=== PATIENT | male | born 1970 | race Caucasian/White ===

== ENCOUNTER → 2020-02-19 16:26 | Outpatient (CLI) | payer OTHER, SELFPAY ==
--- NOTE | ~2020-02-19 | XR_ITS ---
EXAMINATION: XR thoracic spine 3V DATE: 02/19/2020 16:48 INDICATION: Thoracic spine pain. TECHNIQUE: 3 views of thoracic spine on 5 radiographs were obtained. COMPARISON: Chest 2 views 02/19/2015 FINDINGS: Bone alignment is normal. There are changes of anterior fusion procedure at C5-C6. Interver tebral disc heights are normal in thoracic spine. IMPRESSION: 1. Normal thoracic spine. Reviewed, dictated and finalized at location A. TER PACK OPERATOR IMPRESSION: 1. Normal thoracic spine.
== END ==
PROVIDERS: PCP Family Medicine; Referring Provider Family Medicine; Visit Provider Family Medicine
DX: M54.6 Pain in thoracic spine (principal); Z98.1 Arthrodesis status
CPT/HCPCS: 72072

== ENCOUNTER 2020-07-08 10:32 | Outpatient (CLI) | payer OTHER, SELFPAY ==
--- NOTE | ~2020-07-08 | US_ITS ---
EXAMINATION: US carotid duplex BI DATE: 07/08/2020 11:06 INDICATION: Lightheadedness. TECHNIQUE: Grayscale, color Doppler, and pulsed Doppler images of the cervical carotid arteries were obtained. The degree of vessel stenosis is placed in one of the following categories: normal, <50%, 5 0-69%, >=70% but less than near-occlusion, near-occlusion, or total occlusion. Note that percent sten osis relative to normal distal artery lumen diameter is indirectly measured from velocity measurement s as described by Lamin, et al. Radiology 2003; [id number]:[id number]. COMPARISON: None. FINDINGS: RIGHT: The right common carotid artery (CCA) peak systolic velocity (PSV) is 136 cm/s. The right internal ca rotid artery (ICA) PSV is 87 cm/s. The right ICA end-diastolic velocity (EDV) is 21 cm/s. The right I CA/CCA PSV ratio is 0.6. Grayscale and color Doppler images yield an estimate of <50% diameter reduct ion from plaque in the ICA. The external carotid artery (ECA) PSV is 98 cm/s. There is antegrade flow in the right vertebral artery. LEFT: The left CCA PSV is 170 cm/s. The left ICA PSV is 69 cm/s. The left ICA EDV is 24 cm/s. The left ICA/ CCA PSV ratio is 0.4. Grayscale and color Doppler images yield an estimate of <50% diameter reduction from plaque in the ICA. The ECA PSV is 140 cm/s. There is antegrade flow in the left vertebral arter y. Incidentally noted is a 2.9 cm wider than tall solid hypoechoic nodules with smooth margins and wi thout echogenic foci in the left thyroid lobe. (TI-RADS 4, moderately suspicious , FNA if >=1.5 cm, a nnual followup is >=1 cm). IMPRESSION: 1. <50% stenosis in the right internal carotid artery. 2. <50% stenosis in the left internal carotid artery. 3. 2.9 cm TI RADS 4 left thyroid nodule for which ultrasound guided biopsy would be indicated. Recomm end dedicated thyroid ultrasound for more complex evaluation of the thyroid and biopsy of at least th e currently imaged nodule. Reviewed, dictated and finalized at location A. IMPRESSION: 1. <50% stenosis in the right internal carotid artery. 2. <50% stenosis in the left internal carotid artery. 3. 2.9 cm TI RADS 4 left thyroid nodule for which ultrasound guided biopsy woul d be indicated. Recommend dedicated thyroid ultrasound for more complex evaluat ion of the thyroid and biopsy of at least the currently imaged nodule.
== END 2020-07-08 10:33 | disposition home or self-care (01) ==
LOC: ANHIMG 10:38
PROVIDERS: PCP Family Medicine; Visit Provider Family Medicine
DX: R42 Dizziness and giddiness (principal); I65.23 Occlusion and stenosis of bilateral carotid arteries
CPT/HCPCS: 93880

== ENCOUNTER 2020-07-10 06:41 | Outpatient (CLI) | payer OTHER, SELFPAY ==
--- NOTE | 2020-07-10 06:57 | EST_ITS ---
Patient Info Name: Kenneth Gallegos Age: 50 years : 1970 Gender: Male Ht: 70 in Wt: 245 lbs BSA: 2.38 m2 HR: 92 bpm BP: 121 / 85 mmHg Heart Rhythm: Sinus Rhythm Exam Date: 07/10/2020 8:11 AM Exam Location: [facility] Stress Patient Status: Outpatient Admit Date: 07/10/2020 Staff Ordering Physician: Austin Zarco MD Attending Provider: FERMIN PERERA Exercise Technologist: Cole Whatley RDCS, RT Exercise Physician: Fermin Perera DO Exam Type: CA stress test treadmill Study Info Indications R06.00 - Dyspnea, unspecified A treadmill exercise stress test was performed. Summary 1. 1. Negative Frederic exercise stress test for ischemic ST changes by ECG criteria. 2. 2. Good functional capacity, achieving 10 METs of workload. 3. 3. Appropriate HR response to exercise. 4. 4. Appropriate HR recovery at 1 minute post exercise. 5. 5. Hypertensive response to exercise. 6. 6. No imaging with stress testing. 7. 7. Patient informed of the above results. Protocol: Frederic Stress ECG Details Stage: REST Duration (min): 0 min : 44 sec Speed (mph): 0.0 Grade (%): 0 HR (bpm): 93 SBP (mmHg): 121 DBP (mmHg): 85 METS: --- Stage: REST Duration (min): 6 min : 7 sec Speed (mph): 0.0 Grade (%): 0 HR (bpm): 99 SBP (mmHg): 121 DBP (mmHg): 85 METS: --- Stage: STAGE 1 Duration (min): 1 min : 0 sec Speed (mph): 1.7 Grade (%): 10 HR (bpm): 112 SBP (mmHg): 121 DBP (mmHg): 85 METS: --- Stage: STAGE 1 Duration (min): 2 min : 0 sec Speed (mph): 1.7 Grade (%): 10 HR (bpm): 117 SBP (mmHg): 121 DBP (mmHg): 85 METS: --- Stage: STAGE 1 Duration (min): 3 min : 0 sec Speed (mph): 1.7 Grade (%): 10 HR (bpm): 119 SBP (mmHg): 155 DBP (mmHg): 69 METS: --- Stage: STAGE 2 Duration (min): 1 min : 0 sec Speed (mph): 2.5 Grade (%): 12 HR (bpm): 126 SBP (mmHg): 155 DBP (mmHg): 69 METS: --- Stage: STAGE 2 Duration (min): 2 min : 0 sec Speed (mph): 2.5 Grade (%): 12 HR (bpm): 135 SBP (mmHg): 163 DBP (mmHg): 68 METS: --- Stage: STAGE 2 Duration (min): 3 min : 0 sec Speed (mph): 2.5 Grade (%): 12 HR (bpm): 137 SBP (mmHg): 163 DBP (mmHg): 68 METS: --- Stage: STAGE 3 Duration (min): 1 min : 0 sec Speed (mph): 3.4 Grade (%): 14 HR (bpm): 148 SBP (mmHg): 198 DBP (mmHg): 81 METS: --- Stage: STAGE 3 Duration (min): 2 min : 0 sec Speed (mph): 3.4 Grade (%): 14 HR (bpm): 153 SBP (mmHg): 198 DBP (mmHg): 81 METS: --- Stage: STAGE 3 Duration (min): 2 min : 22 sec Speed (mph): 3.4 Grade (%): 14 HR (bpm): 156 SBP (mmHg): 198 DBP (mmHg): 81 METS: --- Stage: RECOVERY Duration (min): 0 min : 37 sec Speed (mph): 0.0 Grade (%): 0 HR (bpm): 145 SBP (mmHg): 210 DBP (mmHg): 79
--- NOTE | 2020-07-10 06:57 | ECHO_ITS ---
Patient Info Name: Kenneth Gallegos Age: 50 years : 1970 Gender: Male Ht: 70 in Wt: 245 lbs BSA: 2.38 m2 HR: 79 bpm BP: 124 / 90 mmHg Technical Quality: Good Exam Date: 07/10/2020 7:16 AM Exam Location: [facility] Pulmonary Patient Status: Outpatient Admit Date: 07/10/2020 Staff Ordering Physician: Austin Zarco MD Wheel Worker: Cole Whatley, RADHA, RT Attending Provider: Austin Zarco MD Referring Physician: Carolee ESCALONA; Exam Type: CA echo doppler color flow Study Info Indications R06.00 - Dyspnea, unspecified Complete two-dimensional, color flow and Doppler transthoracic echocardiogram is performed. Strain analysis performed. Summary 1. Complete two-dimensional, color flow and Doppler transthoracic echocardiogram is performed. 2. Left ventricular chamber dimension is normal. 3. Left ventricular systolic function is normal, estimated at 60-65%. 4. There is mildly increased left ventricular wall thickness. 5. The left ventricular diastolic function is normal. 6. E/e' 7 is not elevated. 7. Global longitudinal strain is abnormal at -14.3%. 8. Right ventricular systolic function is mildly reduced and with mildly abnormal TAPSE 1.6 cm. 9. Right ventricular chamber dimension is mildly enlarged. Left Ventricle E/e' 7 is not elevated. Global longitudinal strain is abnormal at -14.3%. Left ventricular chamber dimension is normal. Left ventricular systolic function is normal, estimated at 60-65%. There is mildly increased left ventricular wall thickness. The left ventricular diastolic function is normal. Right Ventricle Right ventricular systolic function is mildly reduced and with mildly abnormal TAPSE 1.6 cm. Right ventricular chamber dimension is mildly enlarged. Left Atria Left atrial chamber dimension is normal. Right Atria Right atrial chamber dimension is normal. Aortic Valve The aortic valve is trileaflet. There is no aortic valve stenosis. There is no aortic valve regurgitation. Pulmonic Valve There is no pulmonic regurgitation. Mitral Valve There is no mitral valve stenosis. There is no mitral valve regurgitation. Tricuspid Valve There is no tricuspid valve regurgitation. Pericardium/Pleural There is no pericardial effusion. Inferior Vena Cava Normal inferior vena cava with >50% collapse upon inspiration consistent with normal right atrial pressure, 5 mmHg. Aorta The aortic root size at the sinus of Valsalva is normal. Left Ventricular Outflow Tract Name Value Normal LVOT 2D LVOT Diameter 2.3 cm LVOT Doppler LVOT Peak Gradient 3 mmHg LVOT Mean Gradient 2 mmHg LVOT VTI 15 cm LVOT VTI/AV VTI Ratio 0.9 LVOT Stroke Volume 64 ml LVOT CO 5.5 l/min LVOT CI 2.3 l/min/m2 Mitral Valve Name Value Normal ---------
== END 2020-07-10 06:42 | disposition home or self-care (01) ==
PROVIDERS: PCP Family Medicine; Visit Provider Family Medicine
DX: R53.83 Other fatigue (principal); R42 Dizziness and giddiness; R93.1 Abnormal findings on diagnostic imaging of heart and coronary circulation; I51.7 Cardiomegaly
CPT/HCPCS: 93017; 93306

== ENCOUNTER 2020-08-07 12:18 | Outpatient (CLI) | payer OTHER, SELFPAY ==
--- NOTE | ~2020-08-07 | US_ITS ---
EXAMINATION: US thyroid DATE: 08/07/2020 13:06 INDICATION: Nontoxic single thyroid nodule. TECHNIQUE: Multiple ultrasound images of the thyroid were obtained. COMPARISON: None. FINDINGS: The right thyroid lobe measures 5.1 x 2.0 x 1.6 cm. The left thyroid lobe measures 5.2 x 2.6 x 2.5 c m. In the left thyroid lobe, there is a 3.0 cm solid, very hypoechoic, [id number]-oywf-wqow nodule with s mooth margin without echogenic foci (TI-RADS TR4). IMPRESSION: 1. Left thyroid nodule. Ultrasound-guided fine-needle aspiration is recommended and was performed toprice ay. Reviewed, dictated and finalized at location A. IMPRESSION: 1. Left thyroid nodule. Ultrasound-guided fine-needle aspiration is recommended and was performed today.
--- NOTE | ~2020-08-07 | US_ITS ---
EXAMINATION: US FNA w image guidance DATE: 08/07/2020 13:06 INDICATION: Nontoxic single thyroid nodule. TECHNIQUE: The procedure and its benefits and risks were discussed with the patient. Risks specifically discusse d included bleeding. The patient verbalized understanding of the risks and agreed to proceed. The nec k was prepped and draped in the usual sterile manner. 1% lidocaine was used for local anesthesia. 5 passes were made with a 25G needle into the lesion under ultrasound guidance. There were no immedia te complications. The patient understood to call the ordering physician for results after a week and a half and verbalized that understanding. FINDINGS: Grayscale ultrasound images demonstrate needles advanced into a 3.0 cm nodule in left thyroid lobe fo r biopsy. IMPRESSION: 1. Ultrasound-guided fine needle aspiration of a left thyroid nodule. Reviewed, dictated and finalized at location A.
== END 2020-08-07 12:19 | disposition home or self-care (01) ==
PROVIDERS: PCP Family Medicine; Visit Provider Family Medicine
DX: E04.1 Nontoxic single thyroid nodule (principal)
CPT/HCPCS: 10005; 76536; 88173; 88305

== ENCOUNTER 2021-08-14 07:32 | Outpatient (CLI) | payer OTHER, SELFPAY ==
--- NOTE | 2021-09-15 19:26 | WPDHOMESLEEP ---
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 The patient has been working the swing shift for the past 30 years. He occasionally awakens from sleep short of breath. He constantly awakens at night with heartburn, belching or cough. He occasionally snores loud enough that others complain. He frequently has trouble sleeping when he has a cold. He occasionally wakes up gasping for air throughout the night. He occasionally has breathing problems at night observed by himself or others. He rarely sweats excessively at night. He occasionally has heart palpitations or irregular heartbeats during the night. He constantly falls asleep during the day and occasionally falls asleep while driving. He denies cataplexy. He constantly has trouble at school or work due to sleepiness. He occasionally feels unable to move while waking up or falling asleep. He occasionally experiences vivid dreamlike scenes upon awakening or falling asleep. He rarely has nightmares. He occasionally remembers his dreams. He frequently has thoughts racing through his mind. He denies feeling sad or depressed. He frequently has anxiety. He rarely has muscular tension. He occasionally notices parts of his body jerk. He occasionally kicks during the night. He frequently has crawling and aching feelings in his legs and frequently has leg pain during the night. He occasionally grinds his teeth during sleep but never awakens with morning jaw pain. He is constantly bothered by pain during the day and frequently awakened by pain during the night. He constantly wakes up feeling stiff in the morning. He frequently wakes up with sore or achy muscles. He frequently wakes up with pain in the neck, spine or joints. He does not have a set bedtime or wake up time due to his jaw [place]. He typically wakes up 3-4 times throughout the night for unknown reasons. He typically gets 3 hours of sleep per night. Will stay in bed for 30 minutes after waking up in the morning. He currently lives with his girlfriend. He does not consume any caffeinated beverages within 2 hours of bedtime. He does not engage in physical exercise before bedtime. He will watch television before falling asleep. He will take naps in the afternoon or the evening and they are refreshing. He drinks 3 caffeinated beverages per day. He drinks 15 beers per week. He denies tobacco and recreational drug use. [facility] Past Medical History Medical History Abnormal serum iron level Acute bronchitis BMI 36.0-36.9,adult Chronic thoracic back pain Controlled type 2 diabetes mellitus without complication, without long-term current use of insulin COVID-19 (03/11/20) Episodic lightheadedness Essential (primary) hypertension (06/11/20) Fatigue Fatty liver Gastro-esophageal reflux disease without esophagitis Hypersomnia Mixed hyperlipidemia Positive AMADOU (antinuclear antibody) Renal stone Thyroid nodule greater than or equal to 1.5 cm in diameter incidentally noted on imaging study (07/08/20) 2.9 cm left thyroid nodule on carotid Doppler study 07/08/2020 Family History Family History Mother Patient's mother is , Onset Age: 61 Family history of malignant neoplasm Father Patient's father is , Onset Age: 63 Acute myocardial infarction Social History Social History Smoking status: Never smoker Alcohol intak
[2021-09-15 19:36] VITALS: BMI 36.1
== END 2021-09-15 11:22 | disposition home or self-care (01) ==
LOC: ANHCSM 07:33
PROVIDERS: PCP Family Medicine; Visit Provider Family Medicine
DX: G47.10 Hypersomnia, unspecified (principal); G47.33 Obstructive sleep apnea (adult) (pediatric)
CPT/HCPCS: 95800

== ENCOUNTER 2022-12-15 02:09 | Day surgery (SDC) | payer OTHER, SELFPAY ==
[2022-12-09 13:02] VITALS: BMI 35.9
[2022-12-15 06:47] VITALS: BP 140/96; PULSE 81; RESP 18; TEMP 36.4; O2SAT 99; BMI 34.3
[2022-12-15 06:59] LABS: Glucose Point of Care 155 mg/dl (65-105)
[2022-12-15] MEDS: LACTATED RINGERS 1,000 ML 150 ML IV CONT (07:00)
--- NOTE | 2022-12-15 07:25 | WPDANESEPPF ---
Anes - Initial Pre Proc Eval Procedure: Operation Date: 12/15/22 08:00 Proposed Procedures p Screening Colonoscopy - Donovan Canada MD Date/Time: 12/15/22 07:25 Surgeon: Donovan Canada MD Pre Op Diagnosis: neoplasm screening Patient Data Age: 52 Gender: M Height: 1.78 m Weight: 108.6 kg Last Vital Signs Temp 97.6 F 12/15/22 06:47 Pulse 81 12/15/22 06:47 Resp 18 12/15/22 06:47 BP 140/96 H 12/15/22 06:47 Pulse Ox 99 12/15/22 06:47 O2 Del Method Room Air 12/15/22 06:47 Allergies Allergy/AdvReac Type Severity Reaction Status Date / Time No Known Allergies Allergy Verified 12/09/22 13:04 Home Medications Medication Instructions Recorded Confirmed Type cetirizine 10 mg tablet (Zyrtec) 10 mg PO DAILY 11/29/19 12/09/22 History esomeprazole magnesium 20 mg 20 mg PO DAILY 11/29/19 12/09/22 History capsule,delayed release (Nexium 24HR) sildenafil 100 mg tablet 100 mg PO DAILY PRN sexual 04/16/21 12/09/22 Rx activity #90 tabs azelastine 205.5 mcg (0.15 %) 2 spray intranasal DAILY PRN 06/04/22 12/09/22 History nasal spray (Astepro Allergy) Allergy Symptoms atorvastatin 10 mg tablet 10 mg PO . Q.a.m. #30 tabs 12/01/22 12/09/22 Rx lisinopril 20 mg tablet 20 mg PO DAILY #30 tabs 12/01/22 12/09/22 Rx metformin 500 mg tablet,extended 1,000 mg PO QAM 12/09/22 12/09/22 History release 24hr Laboratory Tests 12/15/22 06:52 POC Capillary Glucose 155 H mg/dl (65-105) Patient hx anesthesia problems: none Family hx anesthesia problems: none Results Review: All pre-operative results and documents have been reviewed as part of the pre-operative evaluation. [facility] Past Medical History Medical History (Updated 12/01/22 @ 17:59 by Austin Zarco MD) Abnormal serum iron level Total iron 198 with 87% saturation and ferritin 585 on 06/25/2020. Iron 111 with 44% saturation and ferritin 568 11/04/2020. Iron elevated at 203 with 89% saturation and ferritin 713 on 10/13/2021. Total iron 129 with 53% saturation and ferritin 319 on 11/27/2022. Acute bronchitis BMI 36.0-36.9,adult Bruxism Chronic pain of left hand (~2020) Chronic thoracic back pain Colon cancer screening Controlled type 2 diabetes mellitus without complication, without long-term current use of insulin Fasting glucose 136 with hemoglobin A1c 5.7 on 06/25/2020. Glucose 111 with hemoglobin A1c 5.7 on 11/04/2020. glucose 156 with hemoglobin A1c 6.7 on 10/13/2021. Fasting glucose 125 with hemoglobin A1c 5.9 on 11/27/2022. COVID-19 (03/11/20) Episodic lightheadedness Essential (primary) hypertension (06/11/20) Eustachian tube dysfunction Fatigue Fatty liver GGT 92, AST 34, ALT elevated at 61 on 10/13/2021. AST 29, ALT 54 on 11/27/2022. Gastro-esophageal reflux disease without esophagitis Hypersomnia Insomnia Mixed hyperlipidemia Total cholesterol 176, triglycerides 130, HDL 41, LDL 110 on 10/13/2021. Cholesterol 198, HDL 43, triglycerides 105, LDL 134 with ratio 4.6 on 11/27/2022. Obesity (BMI 30-39.9) Positive AMADOU (antinuclear antibody) Renal stone Thyroid nodule greater than or equal to 1.5 cm in diameter incidentally noted on imaging study (07/08/20) 2.9 cm left thyroid nodule on carotid Doppler study 07/08/2020 TMJ arthralgia on the left side Family History Family History Mother Patient's mother is , Onset Age: 61 Family history of malignant neoplasm Father Patient's father is , Onset Age: 63 Acute myocardial infarction Social History Social History Smoking status: Never smoker Alcohol intake: current Drinks per week: 12 Alcohol use details: beer Substance use: never Substance use type: does not use Lack of Transportation: No Lack of Food: Never True Current Housing: I Have Housing Concerned About Future
--- NOTE | 2022-12-15 07:52 | PM.HPGS ---
History of Present Illness History of Present Illness Consent: Risks, benefits, and alternatives have been discussed and questions answered. Patient agrees to proceed with procedure. Chief complaint: neoplasm screening Narrative: Kenneth Gallegos is a 52 year old male here for first screening colonoscopy Review of Systems Constitutional: Constitutional: Denies headache(s) and Denies weakness Eyes: Eyes: Denies blurry vision ENT: Reports Normal hearing present, Denies headache(s) and Denies neck pain Cardiovascular: Cardiovascular: Denies chest pain and Denies dyspnea Respiratory: Respiratory: Denies dyspnea Gastrointestinal: Gastrointestinal: Reports no additional gastrointestinal complaints Genitourinary: Genitourinary: Denies dysuria Musculoskeletal: Musculoskeletal: Denies neck pain Integumentary/Breasts: Skin/Breast: Denies dry skin Neurologic: Reports Normal hearing present, Denies headache(s) and Denies weakness Psychiatric: Psychiatric: Denies anxiety Endocrine: Endocrine: Denies change in body appearance Hematologic/Lymphatic: Hematologic/Lymphatic: Denies easy bleeding Allergic/Immunologic: Allergic/Immunologic: Denies urticaria PMF Past Medical History Medical History (Updated 12/01/22 @ 17:59 by Austin Zarco MD) Abnormal serum iron level Total iron 198 with 87% saturation and ferritin 585 on 06/25/2020. Iron 111 with 44% saturation and ferritin 568 11/04/2020. Iron elevated at 203 with 89% saturation and ferritin 713 on 10/13/2021. Total iron 129 with 53% saturation and ferritin 319 on 11/27/2022. Acute bronchitis BMI 36.0-36.9,adult Bruxism Chronic pain of left hand (~2020) Chronic thoracic back pain Colon cancer screening Controlled type 2 diabetes mellitus without complication, without long-term current use of insulin Fasting glucose 136 with hemoglobin A1c 5.7 on 06/25/2020. Glucose 111 with hemoglobin A1c 5.7 on 11/04/2020. glucose 156 with hemoglobin A1c 6.7 on 10/13/2021. Fasting glucose 125 with hemoglobin A1c 5.9 on 11/27/2022. COVID-19 (03/11/20) Episodic lightheadedness Essential (primary) hypertension (06/11/20) Eustachian tube dysfunction Fatigue Fatty liver GGT 92, AST 34, ALT elevated at 61 on 10/13/2021. AST 29, ALT 54 on 11/27/2022. Gastro-esophageal reflux disease without esophagitis Hypersomnia Insomnia Mixed hyperlipidemia Total cholesterol 176, triglycerides 130, HDL 41, LDL 110 on 10/13/2021. Cholesterol 198, HDL 43, triglycerides 105, LDL 134 with ratio 4.6 on 11/27/2022. Obesity (BMI 30-39.9) Positive AMADOU (antinuclear antibody) Renal stone Thyroid nodule greater than or equal to 1.5 cm in diameter incidentally noted on imaging study (07/08/20) 2.9 cm left thyroid nodule on carotid Doppler study 07/08/2020 TMJ arthralgia on the left side Family History Family History Mother Patient's mother is , Onset Age: 61 Family history of malignant neoplasm Father Patient's father is , Onset Age: 63 Acute myocardial infarction Social History Social History Smoking status: Never smoker Alcohol intake: current Drinks per week: 12 Alcohol use details: beer Substance use: never Substance use type: does not use Lack of Transportation: No Lack of Food: Never True Current Housing: I Have Housing Concerned About Future Housing: No Difficulty Paying Gas/Electric Bills: No Difficulty Paying for Meds: No Currently Unemployed: No Education: High School Diploma/GED Difficulty w/ Childcare or Family Care: No Living arrangements: with family Spiritual care concerns: No Meds Home Medications and Allergies Home Medications Medication Instructions Recorded Confirmed Type cetirizine 10 mg tablet (Zyrtec) 10 mg PO DAILY 11/29/19 12/09/22 History esomeprazole magnesium 20 mg 20 mg PO DAILY
[2022-12-15 08:10] VITALS: BP 128/87; PULSE 88; RESP 24; O2SAT 98
[2022-12-15 08:20] VITALS: BP 126/92; PULSE 86; RESP 17; O2SAT 97
[2022-12-15 08:30] VITALS: BP 130/92; PULSE 78; RESP 16; O2SAT 98
== END 2022-12-15 08:33 | disposition home or self-care (01) ==
PROVIDERS: PCP Family Medicine; Visit Provider Internal Medicine Gastroenterology
PROC: 0DJD8ZZ Inspection of Lower Intestinal Tract, Via Natural or Artificial Opening Endoscopic (ICD-10-PCS; CPT 45378; principal; 2022-12-15 08:00)
DX: Z12.11 Encounter for screening for malignant neoplasm of colon (principal); D12.0 Benign neoplasm of cecum; E78.2 Mixed hyperlipidemia; K21.9 Gastro-esophageal reflux disease without esophagitis; E11.9 Type 2 diabetes mellitus without complications; I10 Essential (primary) hypertension; K76.0 Fatty (change of) liver, not elsewhere classified; E66.9 Obesity, unspecified; Z68.34 Body mass index [BMI] 34.0-34.9, adult; Z79.84 Long term (current) use of oral hypoglycemic drugs
CPT/HCPCS: 45385; 82948; 88305; J2704; J7120

== ENCOUNTER → 2023-06-02 16:38 | Outpatient (CLI) | payer OTHER, SELFPAY ==
--- NOTE | ~2023-06-02 | XR_ITS ---
EXAMINATION: XR chest 2V DATE: 06/02/2023 16:47 INDICATION: 6 months of chronic cough TECHNIQUE: PA and lateral views of the chest were obtained. COMPARISON: Chest radiograph dated 02/19/2015 FINDINGS: The lungs remain clear with no focal airspace opacities, pulmonary edema, pleural effusion or pneumot horax. The cardiomediastinal silhouette is normal. Postoperative change of anterior spinal fusion wit h bone graft cage projecting over the lower cervical spine. IMPRESSION: 1. No acute cardiopulmonary disease. Reviewed, dictated and finalized at location B.
== END ==
PROVIDERS: PCP Family Medicine; Visit Provider Family Medicine
DX: R05.3 Chronic cough (principal)
CPT/HCPCS: 71046

== ENCOUNTER 2023-09-14 15:44 | Outpatient (CLI) | payer OTHER, SELFPAY ==
--- NOTE | ~2023-09-14 | XR_ITS ---
3 VIEWS LUMBAR SPINE Ordering provider: Austin Zarco MD History: . M54.5 - Low back pain . Comparison: None. FINDINGS: VERTEBRAL BODIES: No visible fracture or subluxation. Severe bending of the coccyx. DISK SPACES: Normal. SOFT TISSUES: Normal. IMPRESSION: No acute osseous abnormality lumbar spine. Reviewed, dictated and finalized at location A.
--- NOTE | ~2023-09-14 | XR_ITS ---
3 VIEWS THORACIC SPINE Ordering provider: Austin Zarco MD History: . M54.6 - Pain in thoracic spine . Comparison: February 19, 2020 FINDINGS: VERTEBRAL BODIES: Normal height and alignment. No visible fracture or subluxation. DISK SPACES: Normal. SOFT TISSUES: Normal. IMPRESSION: No acute osseous abnormality of the thoracic spine. Reviewed, dictated and finalized at location A.
== END 2023-09-14 15:45 | disposition home or self-care (01) ==
LOC: ANHIMG 15:47
PROVIDERS: PCP Family Medicine; Visit Provider Family Medicine
DX: M54.6 Pain in thoracic spine (principal); M54.50 Low back pain, unspecified; G89.29 Other chronic pain
CPT/HCPCS: 72070; 72110

== ENCOUNTER 2024-01-12 08:14 | Outpatient (CLI) | payer OTHER, SELFPAY ==
--- NOTE | ~2024-01-12 | US_ITS ---
EXAM: ABDOMEN ULTRASOUND HISTORY: elevated liver enzymes COMPARISON: None FINDINGS: LIVER: The liver is increased in echogenicity and size measuring 16 cm in longitudinal dimension. Indeterminate irregularly shaped focus of decreased echogenicity is identified adjacent to the gallbl adder, measuring 15 x 11 x 9 mm. This focus is in an atypical position for focal fatty sparing for wh ich further evaluation is needed. An anechoic well-circumscribed avascular focus is identified adjacent to the capsule of the liver olu suring 2.3 x 1.8 x 2 mm, consistent with a simple cyst for which no further follow-up is needed. The portal vein is patent demonstrating hepatopedal flow. GALLBLADDER: No stones are identified within the gallbladder, which is otherwise unremarkable. No gallbladder wall thickening or pericholecystic fluid. BILE DUCTS: Common bile duct measures 3.8mm. PANCREAS: Limited evaluation of the pancreas secondary to overlying bowel gas RIGHT KIDNEY: 11.4 cm. In length. No hydronephrosis or bulky renal calculi. VASCULATURE : The abdominal aorta and IVC are poorly visualized on the submitted images. IMPRESSION: Indeterminate irregularly shaped focus of decreased echogenicity is identified adjacent to the gallbl adder, an atypical position for focal fatty sparing, for which further evaluation with contrast-enhan william MRI (with liver mass protocol) is suggested. Reviewed, dictated and finalized at location A. IMPRESSION: Indeterminate irregularly shaped focus of decreased echogenicity is identified adjacent to the gallbladder, an atypical position for focal fatty sparing, for which further evaluation with contrast-enhanced MRI (with liver mass protocol) is suggested.
== END 2024-01-12 08:15 | disposition home or self-care (01) ==
PROVIDERS: PCP Family Medicine; Visit Provider Family Medicine
DX: R74.8 Abnormal levels of other serum enzymes (principal)
CPT/HCPCS: 76705

== ENCOUNTER 2024-02-29 14:39 | Outpatient (CLI) | payer OTHER, SELFPAY ==
--- NOTE | ~2024-02-29 | CT_ITS ---
CT of the Abdomen and Pelvis: Indication: Abnormal findings on diagnostic imaging of liver Technique: 2.5 mm axial scans were obtained through the abdomen and pelvis prior to and following in travenous administration of 100 cc of Omnipaque 350. Dose reduction technique was used on this scan b y utilizing automated exposure control and iterative reconstruction technique. The dose-length produc t (DLP) was 3058.22 mGy-cm. Findings: Scans through the lung bases are unremarkable. There is diffuse hepatic steatosis. No enhancing hepatic lesion identified. There is a small somewhat regular hyperdense area adjacent to gallbladder fossa, most likely an area of focal fatty sparing. T he spleen, pancreas, gallbladder, adrenals and kidneys are within normal limits. No evidence of aort ic aneurysm. No lymphadenopathy. No bowel obstruction or bowel wall thickening. There is no evidence to suggest acute appendicitis. Images through the pelvis were performed. Urinary bladder unremarkable. Prostate gland mildly enlarge d. No ascites. Impression: Diffuse hepatic steatosis with small triangular area of fatty sparing adjacent to the gallbladder fos sa. Reviewed, dictated and finalized at location M. MASKER Impression: Diffuse hepatic steatosis with small triangular area of fatty sparing adjacent to the gallbladder fossa.
== END 2024-02-29 14:40 | disposition home or self-care (01) ==
PROVIDERS: PCP Family Medicine; Visit Provider Family Medicine
DX: R93.2 Abnormal findings on diagnostic imaging of liver and biliary tract (principal)
CPT/HCPCS: 74178; Q9967

== ENCOUNTER → 2024-08-21 15:37 | Outpatient (REF) | payer OTHER, SELFPAY ==
--- NOTE | 2024-08-21 15:37 | S_PTH ---
PATIENT: Kenneth Gallegos LOC: [facility] #:[id number] AGE/SX: 54/M ROOM: RE08/21/[address]: Desire Powers MD : 1970 BED: DIS: SPEC #: [id number] RECD: 08/22/24 07:51 STATUS: WILLEM ARROYO #: [id number] MITCH: 08/21/24 15:[address]: Desire Powers DEPT: [facility] Surgical RECD BY: Dhara Chandra Tissues: A - Cyst Procedures: Hematoxylin and Eosin Stain Gross and Microscopic Level 4
--- OUTSIDE RECORDS SUMMARY | 2024-08-21 15:42 | XMS_ITS | CONTINUITY OF CARE DOCUMENT ---
Author Name roxana schmidt Address Unknown Organization [facility] Address [address] [place] [address] Phone [phone] Care Team Providers Care Tool And Die Maker/Designer Name Role Phone Jose CARTER, Onofre Unavailable ABHI JAY MD Unavailable ABHI JAY MD Unavailable INSURANCE PROVIDERS Payer name Policy type / Coverage type [place] red libertarian ID [id number] [id number] Other [id number]
--- OUTSIDE RECORDS SUMMARY | 2024-08-21 15:42 | XMS_ITS | Clinical Summary ---
Author Organization [facility] Janeth haro [facility] Address [address] [place] [address] Care Team Providers Care Market Reporter Name Role Phone Unavailable Primary Care Provider Unavailabl e Social History Tobacco Use Types Packs/Day Years Used Date Smoking Tobacco: Never Assessed Sex and Gender Information Value Date Recorded Sex Assigned at Not on file Legal Sex Male 1:38 PM CDT Gender Identity Not on file Sexual Orientation Not on file Plan of Treatment Upcoming Encounters Date Type Department Care Team (Late st Contact Info) Description 09/14/2024 3:00 PM CDT Office Visit [facility] Oncology and Hematology - [place] [address] [facility] [address] [address] Bird Ferrari MD [address] [facility] [address] [place] [address] Health Maintenance Due Date Last Done Comments DTAP/TDAP/TD VACCINES (1 - Tdap) 1989 HEPATITIS B VACCINES (1 of 3 - 19+ 3-dose series) 05/21 COLORECTAL SCREENING 06/09/2015 Colorectal Cancer Screening 06/09/2015 FIT-DNA Q 3 years 06/09/2015 FIT/FOBT Q 1 year 06/09/2015 Flex Sig/CT Colonography Q 5 years 06/09/2015 ZOSTER VACCINE (1 of 2) 2020 INFLUENZA VACCINE (#1) 2023 Insurance [employer] [id number] Member Subscriber Plan / Payer (Ef fective 2024-Present) Name:Kenneth Gallegos Relation to Subscriber:Self Name:Kenneth Gallegos Payer ID:[id number] (NAIC) Type:HMO Address: [facility] [id number] [place] [id number]
== END ==
LOC: ANHLAB 15:37
PROVIDERS: Visit Provider Plastic Surgery
DX: L72.3 Sebaceous cyst (principal)
CPT/HCPCS: 88305

== ENCOUNTER 2024-09-14 15:37 | Outpatient (CLI) | payer OTHER, SELFPAY ==
[2024-09-14 15:51] LABS: Basophils Percent Auto 0.3 % (0.2-1.2); Eosinophils Absolute Auto 0.3 K/mm3 (0-0.3); Eosinophils Percent Auto 2.7 % (0-4.4); Hemoglobin 16.7 g/dL (14.0-18.0); Immature Granulocyte Absolute 0.06 K/mm3 (0.00-0.031); Immature Granulocyte Percent A 0.5 % (0-0.5); Lymphocytes Absolute Auto 1.84 K/mm3 (0.9-3.2); Lymphocytes Percent Auto 15.5 % (18.3-44.2); Mean Corpuscular HGB Conc 35.5 g/dl (32-36); Mean Corpuscular Hemoglobin 33.4 pg (26-34); Mean Platelet Volume 10.3 fl (7.4-10.4); Neutrophils Absolute Auto 8.7 K/mm3 (1.3-6.7); Platelet Count Result 299 k/mm3 (150-375); Red Cell Distribution Width 11.9 % (11.5-14.5); White Blood Count 11.9 K/mm3 (4.5-10.0)
[2024-09-14 16:30] LABS: Iron 113 ug/dL (49-181)
[2024-09-14 16:32] LABS: Alanine Aminotransferase 88 U/L (6-50); Albumin Level 4.6 g/dL (3.5-5.1); Alkaline Phosphatase 92 U/L (38-126); Anion Gap 12 mmol/L (4-12); Aspartate Amino Transferase 75 U/L (17-59); Bilirubin,Total 0.7 mg/dL (0.2-1.3); Blood Urea Nitrogen 18 mg/dL (9-20); Calcium 9.9 mg/dL (8.4-10.2); Carbon Dioxide 24 mmol/L (22-30); Chloride 105 mmol/L (98-107); Estimated Glomerular Filt Rate > 60; Glucose 112 mg/dL (65-110); Potassium 4.5 mmol/L (3.4-5.0); Sodium 141 mmol/L (137-145); Total Protein 7.8 g/dL (6.3-8.2)
[2024-09-14 16:39] LABS: Percent Iron Saturation 41 % (20-50)
== END 2024-09-14 15:38 | disposition home or self-care (01) ==
LOC: ANHLAB 15:38
PROVIDERS: PCP Family Medicine; Visit Provider Internal Medicine Hematology & Oncology
DX: E83.110 Hereditary hemochromatosis (principal)
CPT/HCPCS: 36415; 80053; 81256; 82728; 83540; 83550; 85025

== ENCOUNTER → 2024-10-11 14:26 | Outpatient (CLI) | payer OTHER, SELFPAY ==
--- NOTE | ~2024-10-11 | XR_ITS ---
EXAM/ PROCEDURE: XR cervical spine 4-5V - 10/11/2024 14:30 CDT HISTORY: 54 years old Male with M54.2 - Cervicalgia, no injury COMPARISON: None available TECHNIQUE: Three view(s) FINDINGS/ IMPRESSION: There are no fractures or dislocations.Multilevel degenerative changes are seen. Visualized portion o f lungs are clear. Postsurgical changes with partial ankylosis at C5-6. Reviewed, dictated and finalized at location A.
--- OUTSIDE RECORDS SUMMARY | 2024-10-11 14:38 | XMS_ITS | Clinical Summary ---
Author Organization [facility] Janeth haro [address] Address [address] [place] [address] Care Team Providers Care Parking Lot Chauffeur Name Role Phone Austin Zarco MD Primary Care Provider [phone] Allergies No known active allergies Medications atorvastatin (LIPITOR) 10 mg tablet Take 10 mg by mouth. Active Trelegy Ellipta 100-62.5-25 mcg Disk with Device 09/14/2024 Ac tive losartan (COZAAR) 50 mg tablet Take 1 Tablet by mouth daily. 08/08/2024 Active cetirizine HCl (ZYRTEC ORAL) Take by mouth daily. Active esomeprazole magnesium (NEXIUM ORAL) Take by mouth. Active metFORMIN (GLUCOPHAGE XR) 500 mg Extended Release 24 hour tablet Take 500 mg by mouth daily. Active Active Problems No known active problems Encounters Date Type Department Care Team Description 10/02/2024 Orders Only [facility] Oncology and Hematology [facility] [address] [place] [address] Bird Ferrari MD Hereditary hemochromatosis (Primary Dx) 09/28/2024 4:30 PM CDT Telephone Check Up [facility] Oncology and Hematology [facility] [address] [place] [address] Bird Ferrari MD Hereditary hemochromatosis (Primary Dx) 09/19/2024 External Device Data STL ABSTRACTION Provider, Abstract 09/19/2024 External Device Data STL ABSTRACTION Provider, Abstract 09/19/2024 External Device Data STL ABSTRACTION Provider, Abstract 09/15/2024 Orders Only [facility] Oncology and Hematology [facility] [address] [place] [address] Bird Ferrari MD 09/14/2024 3:00 PM CDT Office Visit [facility] Oncology and Hematology [facility] [address] [place] [address] Bird Ferrari MD Hereditary hemochromatosis (Primary Dx) from Last 3 Months Family History Medical History Relation Name Comments No Known Problems Brother 1 No Known Problems Brother 2 No Known Problems Brother 3 No Known Problems Child 1 No Known Problems Child 2 Heart Disease Father Stomach Cancer Mother Cancer - Other Sister Relation Name Status Comments Brother 1 Alive Brother 2 Alive Brother 3 Alive Child 1 Alive Child 2 Alive Father Mother Sister Social History Tobacco Use Types Packs/Day Years Used Date Smoking Tobacco: Never Smokeless Tobacco: Never Tobacco Cessation:Counseling Given: Not Answered Alcohol Use Standard Drinks/Week Comments Yes 0 (1 standard drink = 0.6 oz pur e alcohol) occasional Sex and Gender Information Value Date Recorded Sex Assigned at Not on file Legal Sex Male 1:38 PM CDT Gender Identity Not on file Sexual Orientation Not on file Last Filed Vital Signs Vital Sign Reading Time Taken Comments Blood Pressure 104/77 09/14/2024 2:53 PM CDT Pulse 117 09/14/2024 2:53 PM CDT Temperature 36.1 C (96.9 F) 09/14/2024 2:53 PM CDT Respiratory Rate 15 09/14/2024 2:53 PM CDT Oxygen Saturation 94% 09/14/2024 2:53 PM CDT Inhaled Oxygen Concentration - - Weight 116.2 kg (256 lb 3.2 oz) 09/14/2024 2:53 PM CDT Height 175.3 cm (5' 9) 09/14/2024 2:53 PM CDT Body Mass Index 37.83 09/14/2024 2:53 PM CDT Plan of Treatment Upcoming Encounters Date Type Department Care Team (Late st Contact Info) Description 01/16/2025 1:15 PM CDT Office Visit [facility] Oncology and Hematology [facility] [address] [place] [address] Bird Ferrari MD [address] [facility] [employer] [address] [place] [address] Health Maintenance Due Date Last Done Comments Pre-Diabetes and Diabetes Screening 1970 DTAP/TDAP/TD VACCINES (1 - Tdap) 1989 HEPATITIS B VACCINES (1 of 3 - 19+ 3-dose series) 05/21 COLORECTAL SCREENING 06/09/2015 Colorectal Cancer Screening 06/09/2015 FIT-DNA Q 3 years 06/09/2015 FIT/FOBT Q 1 year 06/09/2015 Flex Sig/CT Colonography Q 5 years 06/09/2015 ZOSTER VACCINE (1 of 2) 2020 Preventative Visit- Commercial 03/22/2024 INFLUENZA VACCINE (#1) 2024 Procedures Procedure Name Priority Date/Time Associated Diagnosis Comments IRON, TIBC, AND PERCENT SATURATION Routine 10/03/2024 3:20 PM CDT Hereditary hemochromatosis FERRITIN Routine 10/03/2024 3:20 PM CDT Hereditary hemochromatosis IRON LEVEL Routine 09/14/2024 8:49 AM CDT from Last 3 Months Results * IRON, TIBC, AND PERCENT SATURATION (10/03/2024 3:20 PM CDT) IRON 112 50 - 180 mcg/dL [facility] TIBC 263 250 - 425 mcg/dL (calc) [facility] IRON % SATURATION 43 20 - 48 % (calc) [facility] Comment: FASTING:NO FASTING: NO Test Performed at: [facility] [address] [place] [address] Forrest Davis MD Blood 10/03/2024 3:20 PM CDT 10/03/2024 3:21 PM CDT Bird Ferrari MD CHEMISTRY ORDERABLES Final Resu lt [facility] [phone] [facility] [id number] [place] [phone] * (ABNORMAL) FERRITIN (10/03/2024 3:20 PM CDT) FERRITIN 385(H) 38 - 380 ng/mL [facility] Comment: FASTING:NO FASTING: NO Test Performed at: [facility] [address] Forrest Davis MD Blood 10/03/2024 3:20 PM CDT 10/03/2024 3:21 PM CDT Bird Ferrari MD CHEMISTRY ORDERABLES Final Resu lt [facility] [phone] [facility] [address] [phone] * IRON LEVEL (09/14/2024 8:49 AM CDT) Blood Bird Ferrari MD CHEMISTRY ORDERABLES Final Resu lt from Last 3 Months Insurance [employer] [facility] [id number] Care Teams Parking Lot Chauffeur Relationship Specialty Start Date End Date Austin Zarco MD [address] [place] [phone] PCP - General Family Practice 09/14/24
== END ==
LOC: EXPTROY 14:28
PROVIDERS: PCP Family Medicine; Visit Provider Family Medicine
DX: M54.2 Cervicalgia (principal); G89.29 Other chronic pain
CPT/HCPCS: 72050